=== PATIENT | female | born 1960 | race Caucasian/White ===

== ENCOUNTER 2024-02-23 00:22 | Inpatient (IN) | payer BC ==
[~2024-02-23] VITALS: Ht 152.4 cm; Wt 63.0 kg
[2024-02-23 00:45] VITALS: BP_SYST 133; PULSE 72; RESP 18; TEMP 98; O2SAT 98
[2024-02-23] MEDS: NACL 0.9% 1,000 ML IV ONE (03:30)
[2024-02-23] MEDS: KETOROLAC TROMETHAMINE 30 MG VIAL IVP ONE (03:35)
[2024-02-23] MEDS: ONDANSETRON HCL 4 MG/2 ML VIAL IVP ONE (03:36)
[2024-02-23 03:45] LABS: BASOPHILS # (AUTO) 0.1 K/uL (0.0-0.2); BASOPHILS % (AUTO) 1.2 % (0.0-2.0); EOSINOPHILS # (AUTO) 0.1 K/uL (0.0-0.4); EOSINOPHILS % (AUTO) 1.6 % (0.0-4.0); HEMATOCRIT 37.1 % (36-48); HEMOGLOBIN 12.4 g/dL (12.0-16.0); LYMPHOCYTES # (AUTO) 2.5 K/uL (1.0-5.5); LYMPHOCYTES % (AUTO) 34.8 % (20.5-51.5); MEAN CORPUSCULAR HEMOGLOBIN 30 pg (27-31); MEAN CORPUSCULAR HGB CONC 33 % (32-36); MEAN CORPUSCULAR VOLUME 89 fL (79.0-98.0); MONOCYTES # (AUTO) 0.4 K/uL (0.0-1.0); NEUTROPHILS # (AUTO) 4.1 K/uL (1.8-7.7); NEUTROPHILS % (AUTO) 56.4 % (40.0-70.0); PLATELET COUNT (AUTO) 261 K/uL (130-430); RED BLOOD CELL COUNT(AUTO) 4.18 MIL/uL (4.2-6.2); RED CELL DISTRIBUTION WIDTH 13.3 % (9.0-15.0); WHITE BLOOD COUNT (AUTO) 7.3 K/uL (4.8-10.8)
[2024-02-23 03:55] LABS: ANION GAP 8 (5-15); CALCIUM 8.7 mg/dL (8.4-11.0); CARBON DIOXIDE 29 mmol/L (23-29); CHLORIDE 105 mmol/L (98-107); CREATININE 0.65 mg/dL (0.55-1.30); GFR AFRICAN AMERICAN 119 mL/min (>90); GLUCOSE 94 mg/dL (74-106); POTASSIUM 3.5 mmol/L (3.5-5.1); SODIUM SERUM 142 mmol/L (136-145); UREA NITROGEN, BLOOD 17 mg/dL (8-21)
[2024-02-23 03:57] LABS: GFR NON AFRICAN-AMERICAN 98 mL/min (>90)
[2024-02-23] MEDS ORDERED: iohexoL 350 mgI/mL, 100 ML INFUS..BTL IV ONE (06:05)
[2024-02-23] MEDS ORDERED: CLON2TAB11 PO (06:34)
[2024-02-23] MEDS ORDERED: ATOR20TA64 PO (06:34)
[2024-02-23] MEDS ORDERED: LOSA50TA28 PO (06:34)
[2024-02-23] MEDS ORDERED: CYCL10TA25 PO (06:34)
[2024-02-23] MEDS ORDERED: FLUO20CA42 PO (06:34)
[2024-02-23] MEDS ORDERED: GABA-331 PO (06:34)
[2024-02-23] MEDS ORDERED: LEVO100T9 PO (06:34)
[2024-02-23] MEDS: fentaNYL CITRATE/PF 100 MCG/2 ML AMP IVP ONE (06:42)
[2024-02-23] MEDS: FLUoxetine HCL 20 MG CAPSULE (PROzac) PO SCH (09:09)
[2024-02-23] MEDS: PANTOPRAZOLE SODIUM 40 MG TAB PO SCH (09:09)
[2024-02-23] MEDS: ATORVASTATIN 20 MG TABLET PO SCH (09:09)
[2024-02-23] MEDS: LEVOTHYROXINE SODIUM 0.1 MG TABLET PO ONE (09:11)
[2024-02-23 12:00] VITALS: BP_SYST 121; PULSE 74; RESP 18; TEMP 97.2; O2SAT 96
[2024-02-23 12:15] VITALS: BP_SYST 121; PULSE 74; RESP 18; TEMP 97.2; O2SAT 97
[2024-02-23 16:00] VITALS: BP_SYST 118; PULSE 72; RESP 18; TEMP 97.5; O2SAT 96
[2024-02-23 19:20] VITALS: BP_SYST 122; PULSE 84; RESP 20; TEMP 97.2; O2SAT 97
[2024-02-23] MEDS: ACETAMINOPHEN 325 MG TABLET PO PRN (20:14)
[2024-02-24 04:54] LABS: BASOPHILS % (AUTO) 0.4 % (0.0-2.0); EOSINOPHILS # (AUTO) 0.1 K/uL (0.0-0.4); EOSINOPHILS % (AUTO) 1.3 % (0.0-4.0); HEMATOCRIT 32.9 % (36-48); HEMOGLOBIN 11.1 g/dL (12.0-16.0); LYMPHOCYTES # (AUTO) 2.2 K/uL (1.0-5.5); LYMPHOCYTES % (AUTO) 27.8 % (20.5-51.5); MEAN CORPUSCULAR HEMOGLOBIN 30 pg (27-31); MEAN CORPUSCULAR HGB CONC 34 % (32-36); MEAN CORPUSCULAR VOLUME 89 fL (79.0-98.0); MONOCYTES # (AUTO) 0.4 K/uL (0.0-1.0); MONOCYTES % (AUTO) 4.8 % (1.7-9.3); NEUTROPHILS # (AUTO) 5.3 K/uL (1.8-7.7); NEUTROPHILS % (AUTO) 65.7 % (40.0-70.0); PLATELET COUNT (AUTO) 245 K/uL (130-430); RED BLOOD CELL COUNT(AUTO) 3.71 MIL/uL (4.2-6.2); RED CELL DISTRIBUTION WIDTH 13.5 % (9.0-15.0)
[2024-02-24 05:00] VITALS: BP_SYST 126; PULSE 75; RESP 20; TEMP 96.8; O2SAT 94
[2024-02-24 05:05] LABS: ANION GAP 8 (5-15); CALCIUM 7.6 mg/dL (8.4-11.0); CARBON DIOXIDE 31 mmol/L (23-29); CHLORIDE 103 mmol/L (98-107); CREATININE 0.79 mg/dL (0.55-1.30); GFR AFRICAN AMERICAN 95 mL/min (>90); GLUCOSE 90 mg/dL (74-106); POTASSIUM 3.3 mmol/L (3.5-5.1); SODIUM SERUM 142 mmol/L (136-145); UREA NITROGEN, BLOOD 20 mg/dL (8-21)
[2024-02-24 05:06] LABS: PROTHROMBIN TIME 10.6 SECS (9.5-12.5)
[2024-02-24] MEDS: METOCLOPRAMIDE HCL 10 MG/2 ML VIAL IVP PRN (05:17)
[2024-02-24 05:18] LABS: ALANINE AMINOTRANSFERASE 37 U/L (12-78); ASPARTATE AMINOTRANSFERASE 24 U/L (10-37); CHOLESTEROL 235 mg/dL (<200); FREE T4 (FREE THYROXINE) 0.8 ng/dL (0.6-1.6); HDL CHOLESTEROL 48 mg/dL (>55); PHOSPHORUS 3.2 mg/dL (2.7-4.5); THYROID STIMULATING HORMONE 0.85 uIu/mL (0.34-4.82); TOTAL BILIRUBIN 0.3 mg/dL (0.0-1.0); TRIGLYCERIDES 206 mg/dL (30-150)
[2024-02-24 05:52] LABS: GFR NON AFRICAN-AMERICAN 78 mL/min (>90)
[2024-02-24 05:59] LABS: BILIRUBIN,URINE NEGATIVE (NEGATIVE); BLOOD, URINE NEGATIVE (NEGATIVE); COLOR,URINE YELLOW (YELLOW); GLUCOSE,URINE NEGATIVE (NEGATIVE); KETONES,URINE NEGATIVE (NEGATIVE); LEUKOCYTE ESTERASE ,URINE NEGATIVE (NEGATIVE); NITRITE, URINE NEGATIVE (NEGATIVE); PH,URINE 6.5 (5.0-8.0); PROTEIN URINE NEGATIVE (NEGATIVE); UROBILINOGEN,URINE 0.2 (0.2-1.0)
[2024-02-24 06:04] LABS: CLARITY/URINE CLEAR (CLEAR)
[2024-02-24] MEDS: LEVOTHYROXINE SODIUM 0.1 MG TABLET PO SCH (06:22)
[2024-02-24 09:00] VITALS: BP_SYST 138; PULSE 93; RESP 20; TEMP 97.6; O2SAT 95; O2SAT 96
[2024-02-24 13:00] VITALS: BP_SYST 137; PULSE 97; RESP 20; TEMP 98.5; O2SAT 97
== END 2024-02-24 16:50 | disposition left against medical advice (07) | DRG 84 ==
LOC: SED 00:22 → STU 06:39
PROVIDERS: ADMIT Internal Medicine; ATTEND Internal Medicine
DX: S06.899A Other specified intracranial injury with loss of consciousness of unspecified duration, initial encounter (principal); I10 Essential (primary) hypertension; E03.9 Hypothyroidism, unspecified; F41.9 Anxiety disorder, unspecified; F32.A Depression, unspecified; K21.9 Gastro-esophageal reflux disease without esophagitis; Z53.29 Procedure and treatment not carried out because of patient's decision for other reasons; W01.0XXA Fall on same level from slipping, tripping and stumbling without subsequent striking against object, initial encounter; Z90.49 Acquired absence of other specified parts of digestive tract; M79.7 Fibromyalgia; Y93.89 Activity, other specified; Y99.8 Other external cause status; Y92.89 Other specified places as the place of occurrence of the external cause
CPT/HCPCS: 36415; 70450-TC; 70551; 71045; 71275; 72125-TC; 73030; 80048; 80053; 80061; 81001; 81003; 83735; 83880; 84100; 84439; 84443; 84484; 85025; 85379; 85610; 93005; 93306; 96361; 96374; 96375; 99285; G0378; J1885; J2405; J2765; J3010; Q9967